=== PATIENT | female | born 1970 | race African-American/Black ===

== ENCOUNTER 2017-08-23 13:51 | Emergency (ER) | payer OTHER ==
[~2017-08-23] VITALS: Ht 165.1 cm; Wt 172.4 kg
[~2017-08-23 13:51] MED LIST: FUROSEMIDE40 MG ORAL; Morphine Sulfate 2mg/ml Inj IVP ONE; VICODIN 5-5001 EACH PO
[2017-08-23 14:00] VITALS: BP 114/72
[2017-08-23] MEDS ORDERED: UNOBMED (14:14)
[2017-08-23 14:37] LABS: BASOPHILS % (AUTO) 0.8 % (0.0-2.0); EOSINOPHILS % (AUTO) 0.2 % (0.0-3.0); LYMPHOCYTES % (AUTO) 34.1 % (20.0-45.0); MEAN CORPUSCULAR HEMOGLOBIN 26.7 PG (27.0-31.0); MEAN CORPUSCULAR HGB CONC 31.7 G/DL (32.0-36.0); MEAN CORPUSCULAR VOLUME 84 FL (80-99); MEAN PLATELET VOLUME 6.1 FL (6.5-10.1); MONOCYTES % (AUTO) 5.9 % (1.0-10.0); PLATELET COUNT 356 K/UL (150-450); RED BLOOD COUNT 4.87 M/UL (4.20-5.40); RED CELL DISTRIBUTION WIDTH 14.5 % (11.6-14.8); WHITE BLOOD COUNT 7.5 K/UL (4.8-10.8)
[2017-08-23 14:38] LABS: APPEARANCE,URINE CLEAR; KETONES,URINE 1+ (NEGATIVE); LEUKOCYTE ESTERASE ,URINE 2+ (NEGATIVE); NITRITE,URINE NEGATIVE (NEGATIVE); PH,URINE 5 (4.5-8.0); PROTEIN,URINE 2+ (NEGATIVE); UROBILINOGEN,URINE 1 MG/DL (0.0-1.0)
[2017-08-23 14:48] LABS: PROTHROMBIN TIME 10.2 SEC (9.30-11.50)
[2017-08-23 14:49] LABS: BACTERIA,URINE FEW /HPF; MUCUS,URINE FEW /LPF (NONE/OCC); RBC,URINE 0-2 /HPF (0 - 2); SQUAMOUS EPITHELIAL CELL,UR MODERATE /LPF (NONE/OCC)
[2017-08-23 14:58] LABS: ANION GAP 9 mmol/L (5-15); CALCIUM 9.7 MG/DL (8.5-10.1); CARBON DIOXIDE 28 MMOL/L (21-32); CHLORIDE 99 MMOL/L (98-107); CREATININE 1.2 MG/DL (0.55-1.30); GLOMERULAR FILTRATION RATE 59.1 mL/min (>60); POTASSIUM 3.9 MMOL/L (3.5-5.1); SODIUM 136 MMOL/L (136-145)
[2017-08-23 15:03] LABS: ALANINE AMINOTRANSFERASE 18 U/L (12-78); ALBUMIN/GLOBULIN RATIO 0.6 (1.0-2.7); ASPARTATE AMINO TRANSFERASE 10 U/L (15-37); LIPASE 68 U/L (73-393); TOTAL PROTEIN 8.7 G/DL (6.4-8.2)
--- NOTE | 2017-08-23 15:10 | Emergency Room Report ---
History of Present Illness General Chief Complaint: Abdominal Pain Source: Patient Present Illness HPI The patient presents with several months of intermittent abdominal pain. It's in the upper part of the abdomen. She states it radiates more into her left chest in shoulder then into her back. She's been seen at urgent care multiple times. The doctor stated that they were going to do an ultrasound but it still hasn't been ordered or performed. She states the pain is severe (10/10) at this time aching and cramping. She hasn't taken any medications for the pain. There is no vomiting or diarrhea but she is nauseated. Denies any fevers. She states she will tolerate the pain, but just wants to know what is causing it. She's had headaches in the past - denies now. Also she was admitted at [facility] in 2013 for HTN and ACS. She denies cath at that time. H/O DM type 2 HTN Plantar fasciitis Asthma No dysuria, melena, other joint pain. Allergies: Coded Allergies: LISINOPRIL (Verified Allergy, Unknown, 08/23/17) Patient History Past Medical History: see triage record Social History: Denies: smoking, alcohol use, drug use Social History Narrative at home Last Menstrual Period: 08/08/17 Reviewed Nursing Documentation: PMH: Agreed, PSxH: Agreed Nursing Documentation-PMH Past Medical History: No History, Except For Hx Hypertension: Yes Hx Asthma: Yes Hx Diabetes: Yes Review of Systems All Other Systems: negative except mentioned in HPI Physical Exam Vital Signs Date Time Temp Pulse Resp B/P (MAP) Pulse Ox O2 Delivery O2 Flow Rate FiO2 08/23/17 13:40 98.1 106 18 124/78 99 Room Air Sp02 EP Interpretation: reviewed, normal General Appearance: alert, GCS 15, mild distress, obese Head: normocephalic Eyes: bilateral eye normal inspection, bilateral eye PERRL ENT: moist mucus membranes Neck: supple Respiratory: lungs clear, normal breath sounds Cardiovascular #1: regular rate, rhythm Cardiovascular #2: 2+ radial (R) Gastrointestinal: normal inspection, normal bowel sounds, soft, non-distended, no rebound, guarding - minimal, tenderness - epigastric, overweight Musculoskeletal: back normal, gait/station normal, normal range of motion Neurologic: alert, oriented x3, grossly normal Psychiatric: other - frustrated and in pain Skin: normal inspection, warm/dry Medical Decision Making Diagnostic Impression: Primary Impression: Abdominal pain Qualified Codes: R10.13 - Epigastric pain ER Course Diabetic patient presents with epigastric abdominal pain. Ddx: gallstones, GERD , gastritis, AMI, esophageal spasm, pancreatitis, gastroparesis amongst others. Severity of pain demands urgent evaluation with EKG, labs, CT abdomen and pelvis with contrast. Treatment with IV hydration and analgesia with pepcid also. Normal WBC and H/H. Lytes with slightly elevated glucose, normal lipase. UA clear. Vomiting and increased pain just prior to CT. Treated with reglan and morphine. CT below. Not diagnostic for cause, but excludes gall bladder and pancreatic issues. Discussed findings with patient and told of need for f/u and probable endoscopy. No medical or surgical emergency at this time. Improved with treatment. Patient stable for outpatient observation and treatment. Laboratory Tests Test 08/23/17 14:00 White Blood Count 7.5 K/UL (4.8-10.8) Red Blood Count 4.87 M/UL (4.20-5.40) Hemoglobin 13.0 G/DL (12.0-16.0) Hematocrit 41.0 % (37.0-47.0) Mean Corpuscular Volume 84 FL (80-99) Mean Corpuscular Hemoglobin 26.7 PG (27.0-31.0) L Mean Corpuscular Hemoglobin Concent 31.7 G/DL (32.0-36.0) L Red Cell Distribution Width 14.5 % (11.6-14.8) Platelet Count 356 K/UL (150-450) Mean Platelet Volume 6.1 FL (6.5-10.1) L Neutrophils (%) (Auto) 59.0 % (45.0-75.0) Lymphocytes (%) (Auto) 34.1 % (20.0-45.0) Monocytes (%) (Auto) 5.9 % (1.0-10.0) Eosinophils (%) (Auto) 0.2 % (0.0-3.0) Basophils (%) (Auto) 0.8 % (0.0-2.0) Prothrombin Time 10.2 SEC (9.30-11.50) Prothrombin Time INR 1.0 (0.9-1.1) PTT 27 SEC (23-33) Urine Color Yellow Urine Appearance Clear Urine pH 5 (4.5-8.0) Urine Specific [place] 1.025 (1.005-1.035) Urine Protein 2+ (NEGATIVE) H Urine Glucose (UA) Negative (NEGATIVE) Urine Ketones 1+ (NEGATIVE) H Urine Occult Blood Negative (NEGATIVE) Urine Nitrite Negative (NEGATIVE) Urine Bilirubin Negative (NEGATIVE) Urine Urobilinogen 1 MG/DL (0.0-1.0) H Urine Leukocyte Esterase 2+ (NEGATIVE) H Urine RBC 0-2 /HPF (0 - 2) Urine WBC 2-4 /HPF (0 - 2) Urine Squamous Epithelial Cells Moderate /LPF (NONE/OCC) H Urine Bacteria Few /HPF (NONE) Urine Mucus Few /LPF (NONE/OCC) H Urine HCG, Qualitative Negative Sodium Level 136 MMOL/L (136-145) Potassium Level 3.9 MMOL/L (3.5-5.1) Chloride Level 99 MMOL/L (98-107) Carbon Dioxide Level 28 MMOL/L (21-32) Anion Gap 9 mmol/L (5-15) Blood Urea Nitrogen 23 mg/dL (7-18) H Creatinine 1.2 MG/DL (0.55-1.30) Estimate Glomerular Filtration Rate 59.1 mL/min (>60) Glucose Level 167 MG/DL (74-106) H Calcium Level 9.7 MG/DL (8.5-10.1) Total Bilirubin 0.4 MG/DL (0.2-1.0) Aspartate Amino Transferase (AST) 10 U/L (15-37) L Alanine Aminotransferase (ALT) 18 U/L (12-78) Alkaline Phosphatase 84 U/L (46-116) Total Protein 8.7 G/DL (6.4-8.2) H Albumin 3.4 G/DL (3.4-5.0) Globulin 5.3 g/dL Albumin/Globulin Ratio 0.6 (1.0-2.7) L Lipase 68 U/L (73-393) L EKG Diagnostic Results Rate: tachycardiac ST Segments: no acute changes Rhythm Strip Diag. Results EP Interpretation: yes Rhythm: no PVC's, no ectopy, other - ST CT/MRI/US Diagnostic Results CT/MRI/US Diagnostic Results : Imaging Test Ordered: abd pelvis + contrast Impression Subtle heterogeneous renal opacification. Possible small cortical cysts. No acute process. Last Vital Signs Date Time Temp Pulse Resp B/P (MAP) Pulse Ox O2 Delivery O2 Flow Rate FiO2 08/23/17 17:24 94 19 138/87 98 Room Air 08/23/17 14:00 98.0 Status: improved Disposition: HOME, SELF-CARE Condition: Improved Scripts Ondansetron Odt* (ZOFRAN ODT*) 4 Mg Tab.rapdis 4 MG ORAL Q8H Y for Nausea & Vomiting, #10 TAB 1 Refill Prov: Gordy Wong M.D. 08/23/17 Tramadol Hcl* (ULTRAM*) 50 Mg Tablet 50 MG ORAL Q6H Y for For Pain, #12 TAB 0 Refills Prov: Gordy Wong M.D. 08/23/17 Famotidine (PEPCID) 20 Mg Tablet 20 MG ORAL DAILY, #30 TAB 0 Refills Prov: Gordy Wong M.D. 08/23/17 Gordy Wong M.D. Aug 23, 2017 15:10
[2017-08-23] MEDS ORDERED: Morphine Sulfate 4mg/ml Inj IVP ONE (16:00)
[2017-08-23] MEDS ORDERED: DiphenhydrAMINE 50mg/ml Inj IVP ONE (16:00)
[2017-08-23] MEDS ORDERED: Metoclopramide 10mg/2ml Inj IVP ONE (16:00)
[2017-08-23] MEDS ORDERED: TRAMADOL HCL50 MG ORAL (17:03)
[2017-08-23] MEDS ORDERED: PEPCID20 MG ORAL (17:03)
[2017-08-23] MEDS ORDERED: ZOFRAN ODT4 MG ORAL (17:03)
[2017-08-23 17:24] VITALS: BP 138/87
--- NOTE | 2017-09-11 14:52 | Cardiology Report ---
APPROVED REPORT EKG Measurement Heart [id number] Sinus tachycardia Otherwise normal ECG
== END 2017-08-23 17:25 | disposition home or self-care (01) ==
LOC: EDBD 13:51 → EMR 14:30
DX: R10.13 Epigastric pain (principal); I10 Essential (primary) hypertension; E11.9 Type 2 diabetes mellitus without complications; J45.909 Unspecified asthma, uncomplicated; Z88.8 Allergy status to other drugs, medicaments and biological substances
CPT/HCPCS: 36415; 74177; 80053; 81003; 81025; 83690; 85025; 85610; 85730; 93005; 96361; 96374; 96375; 96376; 99284; J1200; J2270; J2405; J2765; Q9967; S0028

== ENCOUNTER 2019-04-18 23:37 | Emergency (ER) | payer MEDICAID, OTHER ==
[~2019-04-18] VITALS: Ht 165.1 cm; Wt 145.1 kg
[~2019-04-18 23:37] MED LIST changes: -Morphine Sulfate 2mg/ml Inj IVP ONE; +PEPCID20 MG ORAL; +TRAMADOL HCL50 MG ORAL; +UNOBMED; +ZOFRAN ODT4 MG ORAL
--- NOTE | 2019-04-18 23:55 | NUR ---
ED Nurse Note: Pt c/o chest, abdominal and both legs pain since this morning. Pt is AO x 4times, VSS, on room air no distress. ERMD seen Pt at bedside.
--- NOTE | 2019-04-19 00:18 | Emergency Room Report ---
History of Present Illness General Chief Complaint: Pain Source: Patient Present Illness HPI This is a 48-year-old female with a history of high blood pressure diabetes. She presents with chief complaint of epigastric pain. Radiate to her chest. No nausea no vomiting. No diarrhea. This is a chronic problem. She had endoscopy which show she has ulcer. Worse when she lay flat. She also came in with complaint of her legs felt funny. She said felt some numbness to that area. Denies any other complaint. No trauma. No swelling. Allergies: Coded Allergies: LISINOPRIL (Verified Allergy, Unknown, 08/23/17) Patient History Past Medical History: see triage record, old chart reviewed, DM, HTN Past Surgical History: other Pertinent Family History: none Social History: Denies: smoking Last Menstrual Period: Mar 17 2019 Now: No Immunizations: other Reviewed Nursing Documentation: PMH: Agreed; PSxH: Agreed Nursing Documentation-PMH Hx Hypertension: Yes Hx Asthma: Yes Hx Diabetes: Yes Review of Systems Eye: Denies: eye pain, blurred vision ENT: Denies: ear pain, nose congestion, throat swelling Respiratory: Denies: cough, shortness of breath Cardiovascular: Denies: chest pain, palpitations Gastrointestinal: Reports: abdominal pain; Denies: diarrhea, nausea, vomiting Musculoskeletal: Denies: back pain, joint pain Skin: Denies: rash Neurological: Denies: headache, numbness Endocrine: Denies: increased thirst, increased urine Hematologic/Lymphatic: Denies: easy bruising All Other Systems: negative except mentioned in HPI Physical Exam Vital Signs Date Time Temp Pulse Resp B/P (MAP) Pulse Ox O2 Delivery O2 Flow Rate FiO2 04/18/19 23:49 98.4 92 18 139/91 (107) 95 Room Air Vitals normal Sp02 EP Interpretation: reviewed, normal General Appearance: well appearing, no apparent distress, alert, obese Head: normocephalic, atraumatic Eyes: bilateral eye PERRL, bilateral eye EOMI ENT: hearing grossly normal, normal pharynx Neck: full range of motion, supple, no meningismus Respiratory: chest non-tender, lungs clear, normal breath sounds Cardiovascular #1: regular rate, rhythm, no murmur Gastrointestinal: normal bowel sounds, non tender, no mass, no organomegaly, no bruit, non-distended Musculoskeletal: back normal, gait/station normal, normal range of motion Psychiatric: mood/affect normal Medical Decision Making Diagnostic Impression: Primary Impression: Abdominal pain Qualified Codes: R10.13 - Epigastric pain Additional Impression: Morbid obesity with BMI of 50.0-59.9, adult ER Course Patient presents with abdominal pain. Exam is benign. Suspect this may be gastritis. She looks well. I will do blood work but then patient got up and left because she says she saw a bug on her shirt. Did not want to stay any further. I see no evidence of issue with her legs other than her morbid obesity may be causing some arthritic pain. Last Vital Signs Date Time Temp Pulse Resp B/P (MAP) Pulse Ox O2 Delivery O2 Flow Rate FiO2 04/18/19 23:49 98.4 92 18 139/91 (107) 95 Room Air Status: unchanged Disposition: AGAINST MEDICAL ADVICE Condition: Stable Sukhdev Ceja MD Apr 19, 2019 00:18
--- NOTE | 2019-04-19 00:20 | NUR ---
ED Nurse Note: Pt AMA and didn't want to have any treatment, refused to sign AMA form. Pt walked out unit with steady gait. RN Dory Gregory and Arturo horvath.
[2019-04-19] MEDS ORDERED: Ketorolac 30mg Inj IV ONE (00:30)
[2019-04-19 00:37] VITALS: BP 139/91
== END 2019-04-19 00:40 | disposition left against medical advice (07) ==
LOC: EMR 23:49
DX: R10.13 Epigastric pain (principal); E66.01 Morbid (severe) obesity due to excess calories; Z68.43 Body mass index [BMI] 50.0-59.9, adult; E11.9 Type 2 diabetes mellitus without complications; I10 Essential (primary) hypertension; Z88.8 Allergy status to other drugs, medicaments and biological substances
CPT/HCPCS: 96374; 96375; 99284